=== PATIENT | female | born 1965 | race Caucasian/White ===

== ENCOUNTER → 2020-09-14 | Outpatient (CLI) | payer OTHER ==
[~2020-09-14] MED LIST: GASTROGRAFIN SOLUTION 30ML (Q9963) As Ordered ONE; ISOVUE-370 76% 100ML VIAL As Ordered ONE
--- NOTE | 2020-09-15 07:16 | REP ---
INDICATION: UPPER RIGHT QUAD PAIN. COMPARISON: None TECHNIQUE: Axial contrast-enhanced images from the lung bases to the pubic symphysis using oral and 100 cc Isovue 370 intravenous contrast material. Precontrast images of the abdomen along with coronal and sagittal reformations obtained. This CT examination was performed using the following dose reduction techniques: Automated exposure control, adjustment of mA and/or kv according to the patient's size, and the use of iterative reconstruction technique. FINDINGS: Lung bases are clear. Visualized heart and pericardium normal. 2.3 cm cystic structure in the medial left hepatic lobe likely representing cyst and less likely hemangioma or further pathology. Liver is otherwise unremarkable. Spleen, pancreas, bilateral adrenal glands and kidneys are normal. Evidence for prior cholecystectomy noted. The enteric system is without obstruction or acute inflammatory process. Findings suggest prior partial right hemicolectomy. Pelvis demonstrates normal bladder and age-appropriate uterus/adnexa No ascites. No free air. No intraperitoneal or retroperitoneal adenopathy. Abdominal aorta and vasculature appear normal. Musculoskeletal structures are intact and without acute osseous abnormality. IMPRESSION: 1. 2.3 cm cystic structure within the left hepatic lobe. Consider ultrasound evaluation to confirm simple cyst versus hemangioma versus mass. 2. No further acute abdominopelvic pathology appreciated. 3. Postsurgical changes. 4. No ascites. No adenopathy. No focal inflammatory stranding. <Electronically signed by Ross Weber > 09/15/20 0713
== END ==
LOC: M RAD 09:40
PROVIDERS: ATTEND Family Medicine
DX: R10.11 Right upper quadrant pain (principal); K76.89 Other specified diseases of liver
CPT/HCPCS: 74178; Q9963; Q9967